=== PATIENT | female | born 1940 | race Caucasian/White ===

== ENCOUNTER → 2017-07-20 | Outpatient (CLI) | payer MEDICARE, BC ==
[~2017-07-20] MED LIST: ASCORBIC ACID100 MG PO; FISH OIL 1,0001 EAC7 PO; MAGNESIUM30 MG PO; PROVENTIL,2.5 MG/3 M IH; VENTOLIN HFA18 GM IH; VITAMIN B-625 MG PO; VITAMIN B12 100MCG PO
== END | disposition home or self-care (01) ==
LOC: CDC 10:30
DX: Z01.810 Encounter for preprocedural cardiovascular examination (principal); M75.42 Impingement syndrome of left shoulder; M75.122 Complete rotator cuff tear or rupture of left shoulder, not specified as traumatic; M25.512 Pain in left shoulder
CPT/HCPCS: 93000